=== PATIENT | female | born 1990 | race Caucasian/White ===

== ENCOUNTER 2021-08-15 18:12 | Emergency (ER) | payer BC, OTHER ==
[~2021-08-15] VITALS: Ht 177.8 cm; Wt 62.6 kg
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
--- NOTE | 2021-08-15 18:20 | NUR ---
AT BED SIDE
[2021-08-15] MEDS ORDERED: LORAZEPAM 1 MG TABLET ONE (18:43)
[2021-08-15] MEDS ORDERED: LORAZEPAM INJ 2 MG/ML VIAL ONE (18:48)
[2021-08-15] MEDS ORDERED: LORAZEPAM 1 MG TABLET PO ONE (19:00)
[2021-08-15] MEDS ORDERED: LORAZEPAM INJ 2 MG/ML VIAL IM ONE (19:00)
[2021-08-15 19:18] LABS: CALCIUM, SERUM 9.3 mg/dL (8.5-10.1); CARBON DIOXIDE 19 mmol/L (21-32); CHLORIDE 101 mmol/L (98-107); CREATININE 1.1 mg/dL (0.6-1.3); GLUCOSE 101 mg/dL (74-106); POTASSIUM 3.2 mmol/L (3.5-5.1); SODIUM SERUM 137 mmol/L (136-145); UREA NITROGEN, BLOOD 12 mg/dL (7-18)
[2021-08-15 20:16] LABS: BASOPHILS % (AUTO) 0.4 % (0.0-2.0); EOSINOPHILS % (AUTO) 1.4 % (0.0-6.0); HEMATOCRIT 40 % (33-45); HEMOGLOBIN 13.4 g/dL (11.5-14.8); LYMPHOCYTES # (AUTO) 3.2 K/uL (0.8-4.8); LYMPHOCYTES % (AUTO) 37.4 % (20.0-44.0); MEAN CORPUSCULAR HGB CONC 34 g/dl (31.0-36.0); MEAN CORPUSCULAR VOLUME 90 fL (82-100); MONOCYTES # (AUTO) 0.5 K/uL (0.1-1.30); MONOCYTES % (AUTO) 6.3 % (2.0-12.0); NEUTROPHILS # (AUTO) 4.7 K/uL (1.8-8.9); NEUTROPHILS % (AUTO) 54.5 % (43.0-81.0); PLATELET COUNT (AUTO) 275 K/uL (150-450); RED BLOOD CELL COUNT(AUTO) 4.42 MIL/uL (4.0-5.2); WHITE BLOOD COUNT (AUTO) 8.7 K/uL (4.3-11.0)
--- NOTE | 2021-08-15 20:43 | NUR ---
Ayaka clifton in [facility] - 08/15/21 at 2044 by QUIANA DRAMA CRITIC AT BEDSIDE
--- NOTE | 2021-08-15 20:48 | NUR ---
Patient discharged to home in stable condition. Written and verbal after care instructions given. Patient verbalizes understanding of instruction. PT ambulatory with a steady gait
[2021-08-15 20:49] VITALS: BP 110/74
== END 2021-08-15 20:50 | disposition home or self-care (01) ==
LOC: ER 18:20
DX: R06.4 Hyperventilation (principal); F41.0 Panic disorder [episodic paroxysmal anxiety]; Z60.2 Problems related to living alone
CPT/HCPCS: 36415; 71045; 80048; 84484; 85025; 85378; 93005; 96372; 99291; J2060